=== PATIENT | male | born 1945 | race Caucasian/White ===

== ENCOUNTER 2019-10-11 09:01 | Emergency (ER) | payer OTHER, BC ==
[~2019-10-11] VITALS: Ht 182.9 cm; Wt 85.7 kg
[2019-10-11 09:20] VITALS: Ht 182.9 cm; Wt 85.7 kg
[2019-10-11 11:47] VITALS: BP 130/60
== END 2019-10-11 11:47 | disposition home or self-care (01) ==
LOC: ED 09:01
DX: S61.211A Laceration without foreign body of left index finger without damage to nail, initial encounter (principal); I10 Essential (primary) hypertension; E78.00 Pure hypercholesterolemia, unspecified; Z88.0 Allergy status to penicillin; W26.8XXA Contact with other sharp object(s), not elsewhere classified, initial encounter; Y93.89 Activity, other specified; Y92.89 Other specified places as the place of occurrence of the external cause; Y99.8 Other external cause status
CPT/HCPCS: 90715; J2001; Q0092

== ENCOUNTER 2019-10-13 07:05 | Emergency (ER) | payer OTHER, BC ==
[~2019-10-13] VITALS: Ht 182.9 cm; Wt 86.6 kg
[2019-10-13 07:29] VITALS: Ht 182.9 cm; Wt 86.6 kg
[2019-10-13 08:15] VITALS: BP 133/57
== END 2019-10-13 08:15 | disposition home or self-care (01) ==
LOC: ED 07:05
DX: S61.211D Laceration without foreign body of left index finger without damage to nail, subsequent encounter (principal); X58.XXXD Exposure to other specified factors, subsequent encounter